=== PATIENT | male | born 1985 | race Caucasian/White ===

== ENCOUNTER 2022-05-30 09:44 | Emergency (ER) | payer OTHER ==
[~2022-05-30] VITALS: Ht 177.8 cm; Wt 99.8 kg
[2022-05-30 09:49] VITALS: BP 139/83
== END 2022-05-30 11:57 | disposition home or self-care (01) ==
LOC: EDH 09:44
DX: L02.31 Cutaneous abscess of buttock (principal); E78.00 Pure hypercholesterolemia, unspecified
CPT/HCPCS: 10060